=== PATIENT | male | born 1995 ===

== ENCOUNTER 2020-09-26 05:18 | Emergency (ER) | payer SELFPAY ==
--- NOTE | 2020-09-26 05:32 | Emergency Department Report ---
ED CPR HPI - General Stated Complaint: CARDIAC ARREST Time Seen by Provider: 09/26/20 05:27 Source: EMS - History of Present Illness Initial Comments: Patient is 25 years old male, unknown past medical history. Patient b rought to the emergency room via EMS from home in a full cardiac arrest, CPR in progress. EMS stated that patient family called and stated that patient is unable to breathe. EMS stated that upon arrival to patient, patient was gasping for breath and as soon as the patient put on a stretcher patient stopped breathing and went into asystole. EMS stated that immediately ACLS protocol initiated. CPR started and patient intubated with a Mark airway. Patient received 3 mg of epinephrine in route. Upon arrival to the ER patient still in asystole. ACLS protocol continued in the ER and patient received sodium bicarbonate, calcium and continued on epinephrine. Patient remained in asystole. Patient pronounced at 5:10 AM. According to the EMS patient collapsed at 4:26 AM. Total resuscitation time is 44 minutes. Patient has a recent medication prescribed which include Levaquin and prednisone indicating possible recent diagnosis of pneumonia. For further information please refer to code sheets. No family available at this moment. Complaint: stopped breathing, collapsed during rest Place: home Bystander CPR Performed: No Downtime Before ACLS Arrival (mins): 2 Initial Findings in the Field: no pulse, systole ROSC in the Field: No Associated Injuries: No Associated Symptoms: shortness of breath Treatments Prior to Arrival: other airway device, epinephrine mgs # (3) ED Review of Systems ROS: Stated complaint: CARDIAC ARREST Other details as noted in HPI Comment: Unobtainable due to pts medical conditions ED Physical Exam - General General appearance: other (CPR in progress) - Head Head exam: Present: atraumatic, normocephalic, normal inspection - Eye Pupils: Present: other (Pupils are 4 mm fixed and dilated.) - ENT ENT exam: Present: normal exam - Neck Neck exam: Present: normal inspection - Respiratory Respiratory exam: Present: other (No spontaneous breathing.) - Cardiovascular Cardiovascular Exam: Present: other (No spontaneous heart tone.) - GI/Abdominal GI/Abdominal exam: Present: soft, distended - Extremities Exam Extremities exam: Present: normal inspection - Neurological Exam Neurological exam: Present: other (CPR in progress.) Critical Care Time: Yes Critical care time in (mins) excluding proc time.: 30 Critical care attestation.: If time is entered above; I have spent that time in minutes in the direct care of this critically ill patient, excluding procedure time. ED Disposition Clinical Impression: Cardiopulmonary arrest Disposition: DC-20 Is pt being admited?: No Condition: Stable Referrals: PRIMARY CARE, [Primary Care Provider] - 3-5 Days
== END 2020-09-26 06:00 ==
LOC: EDBD → ED 05:18
DX: I46.9 Cardiac arrest, cause unspecified (principal)
CPT/HCPCS: 82962; 92950